=== PATIENT | female | born 1970 | race Caucasian/White ===

== ENCOUNTER 2025-05-17 12:11 | Emergency (ER) | payer OTHER ==
[2025-05-17 12:52] LABS: #Basophils 0.1 thou/uL (0.0-0.2); #Eosinophils 0.4 thou/uL (0.0-0.7); #Lymphocytes 1.9 thou/uL (1.20-3.40); #Monocytes 0.6 thou/uL (0.11-0.59); #Neutrophils 4.6 thou/uL (1.40-6.50); %Basophils 1.3 % (0.0-1.0); %Eosinophils 5.9 % (0.0-10.0); %Lymphocytes 25.1 % (21.0-51.0); %Monocytes 7.4 % (0.0-10.0); %Neutrophils 60.4 % (42.0-75.0); Hematocrit 37.3 % (36.0-47.0); Hemoglobin 13.2 g/dL (12.0-16.0); Mean Corpuscular Hemoglobin 28.8 pg (27.0-31.0); Mean Corpuscular Volume 81.3 fl (78.0-98.0); Platelet Count 355 10x3/uL (130-400); Red Blood Cell (RBC) Count 4.58 mill/uL (4.20-5.40); White Blood Cell (WBC) Count 7.6 10x3/uL (4.8-10.8)
[2025-05-17 13:06] LABS: ALT (SGPT) 16 U/L (Less than 34); AST (SGOT) 22 U/L (11-34); Albumin 4.5 g/dL (3.1-4.5); Alkaline Phosphatase 73 U/L (40-110); Anion Gap 17 mmol/L (10-20); BUN (Urea Nitrogen) 11 mg/dL (9.8-20.1); Bilirubin, Total 0.4 mg/dL (0.3-1.2); Calc. Creatinine Clearance 0 mL/min (70-130); Calcium 9.7 mg/dL (7.8-10.44); Carbon Dioxide 22 mmol/L (22-29); Chloride 105 mmol/L (98-107); Globulin 3.7 g/dL (2.4-3.5); Glucose 90 mg/dL (70-105); Potassium 3.8 mmol/L (3.5-5.1); Sodium 140 mmol/L (136-145)
[2025-05-17 13:07] LABS: Acetaminophen Less than 10 mcg/mL (Less than 10); Salicylate Less than 8.0 mg/dL (Less than 8.0)
[2025-05-17 13:14] LABS: Glucose, Urine (Dipstick) Negative (Negative); Leukocyte Negative (Negative); Protein, Urine (Dipstick) Negative (Neg-Trace); Specific Gravity, Urine 1.015 (1.005-1.030)
[2025-05-17] MEDS ORDERED: Acetaminophen 325 MG TAB ONE (13:15)
[2025-05-17 13:22] LABS: Cocaine Metabolite Screen Negative (Negative); THC/Cannabinoid Screen Negative (Negative); Tricyclic Screen Negative (Negative)
[2025-05-17 13:23] LABS: Bacteria/HPF None Seen HPF (None Seen); CAUTI Indications for Culture Dysuria,urgency,freq; RBC/HPF None Seen HPF (0-3); WBC/HPF 0-3 HPF (0-3)
[2025-05-17 13:24] LABS: Urine Culture Reflex No No
== END 2025-05-17 16:30 | disposition home or self-care (01) ==
LOC: EEVIPCON 12:11 → BURERS 12:11
DX: S91.031A Puncture wound without foreign body, right ankle, initial encounter (principal); R45.851 Suicidal ideations; F43.0 Acute stress reaction; W59.11XA Bitten by nonvenomous snake, initial encounter
CPT/HCPCS: 36415; 80053; 80306; 80307; 81001; 84443; 85025; 93005; 99285